=== PATIENT | female | born 1995 | race African-American/Black ===

== ENCOUNTER 2018-03-07 09:00 | Inpatient (IN) | payer MEDICAID, OTHER ==
[~2018-03-07] VITALS: Ht 162.6 cm; Wt 91.6 kg
[~2018-03-07 09:00] MED LIST: FERR-142 PO; PREN-508 PO
[2018-03-07] MEDS ORDERED: cefTRIAXone 1,000 MG in LIDOCAINE MPF 1% - 5 mL VIAL 2.1 ML IM SCH (10:05)
[2018-03-07 10:08] VITALS: BP 110/66
[2018-03-07] MEDS ORDERED: cefTRIAXone 1,000 MG VIAL ONE (10:17)
== END 2018-03-07 11:00 | disposition home or self-care (01) | DRG 566 ==
LOC: MLD 09:00
PROVIDERS: ADMIT Obstetrics & Gynecology; ATTEND Obstetrics & Gynecology
DX: O26.899 Other specified pregnancy related conditions, unspecified trimester (principal); Z3A.00 Weeks of gestation of pregnancy not specified
CPT/HCPCS: 81000; 96372; J0696; J2001

== ENCOUNTER 2019-06-06 11:05 | Emergency (ER) | payer OTHER ==
[~2019-06-06] VITALS: Ht 162.6 cm; Wt 99.8 kg
--- NOTE | 2019-06-06 11:10 | NUR ---
Patient ambulated to bed 2. RN evaluating patient at bedside.
[2019-06-06 11:13] VITALS: BP 129/81
--- NOTE | 2019-06-06 11:25 | NUR ---
BIB SELF C/O INTERMITTENT LOWER ABDOMEN CRAMPING TYPE PAIN RADIATING TO LOWER BACK X 2 DAYS AGO. DENIES VAG BLEEDING OR INJURY. LMP 03/04/2019. NO SOLDERER PRODUCTION LINE VISIT YET. HX--ANEMIA.PATIENT STATES PAIN OF 0/10 AT THIS TIME. PATIENT POSITIONED FOR COMFORT; HOB ELEVATED; BEDRAILS UP X1; BED DOWN. ER MD MADE AWARE OF PT STATUS.
[2019-06-06 11:53] VITALS: BP 129/81
--- NOTE | 2019-06-06 11:53 | NUR ---
Patient discharged with v/s stable. Written and verbal after care instructions given and explained. Patient verbalized understanding. Ambulatory with steady gait. All questions addressed prior to discharge. Advised to follow up with PMD.
== END 2019-06-06 11:53 | disposition home or self-care (01) ==
LOC: MED 11:05
DX: O26.91 Pregnancy related conditions, unspecified, first trimester (principal); R10.30 Lower abdominal pain, unspecified; Z3A.13 13 weeks gestation of pregnancy; Z79.899 Other long term (current) drug therapy; Z98.890 Other specified postprocedural states
CPT/HCPCS: 81002; 81025; 99282